=== PATIENT | female | born 1975 | race Caucasian/White ===

== ENCOUNTER 2024-02-02 04:22 | Emergency (ER) | payer MEDICAID ==
[~2024-02-02] VITALS: Ht 154.9 cm; Wt 77.0 kg
[~2024-02-02 04:22] MED LIST: ASPI-1160 PO; EPIN0.3P3 IM; GABA-529 PO; LIP40 PO; LOSA25TA26 PO
[2024-02-02 04:33] VITALS: TEMP 98.2; O2SAT 98
[2024-02-02] MEDS: FAMOTIDINE 20MG/2ML VIAL IV ONE (05:15)
[2024-02-02] MEDS: FAMOTIDINE 20MG/2ML VIAL IV NR (05:15)
[2024-02-02] MEDS: METHYLPREDNISOLONE SOD SUCC 125MG/2ML (ACT-O-VIAL) IV ONE (05:59)
[2024-02-02] MEDS: DIPHENHYDRAMINE 50MG/ML VIAL IV ONE (06:00)
[2024-02-02 07:45] VITALS: BP 112/78; PULSE 90; RESP 16
[2024-02-02] MEDS ORDERED: P20 MT (08:02)
[2024-02-02] MEDS ORDERED: DIPH25CA83 MT (08:03)
[2024-02-02] MEDS ORDERED: FAMO-135 MT (08:03)
== END 2024-02-02 08:37 | disposition home or self-care (01) ==
LOC: ER 04:22
DX: T78.40XA Allergy, unspecified, initial encounter (principal); E11.9 Type 2 diabetes mellitus without complications; E78.00 Pure hypercholesterolemia, unspecified; I10 Essential (primary) hypertension; X58.XXXA Exposure to other specified factors, initial encounter
CPT/HCPCS: 96374; 96375; 99284; J1200; J3490; J2930; Z7610

== ENCOUNTER 2024-02-03 05:22 | Emergency (ER) | payer MEDICAID ==
[~2024-02-03] VITALS: Ht 154.9 cm; Wt 77.0 kg
[~2024-02-03 05:22] MED LIST changes: +DIPH25CA83 MT; +FAMO-135 MT; +P20 MT
[2024-02-03 05:27] VITALS: O2SAT 93
[2024-02-03] MEDS: FAMOTIDINE 20MG/2ML VIAL IV ONE (06:15)
[2024-02-03] MEDS: DEXAMETHASONE 10 MG/ML VIAL IV ONE (06:15)
[2024-02-03] MEDS: EPINEPHRINE 1:1000 1 MG/ML AMP IM ONE (06:16)
[2024-02-03] MEDS: DIPHENHYDRAMINE 50MG/ML VIAL IV ONE (06:16)
[2024-02-03] MEDS: LORAZEPAM 2MG/ML INJ IV ONE (06:51)
[2024-02-03 10:00] VITALS: BP 119/75; RESP 12; TEMP 98.9
[2024-02-03 10:57] VITALS: PULSE 98
[2024-02-04] MEDS ORDERED: RIFA300C34 MT (18:27)
== END 2024-02-03 11:25 | disposition home or self-care (01) ==
LOC: ER 05:35
DX: T78.2XXA Anaphylactic shock, unspecified, initial encounter (principal); E11.9 Type 2 diabetes mellitus without complications; I10 Essential (primary) hypertension; I25.2 Old myocardial infarction; Z79.899 Other long term (current) drug therapy; X58.XXXA Exposure to other specified factors, initial encounter
CPT/HCPCS: 93005; 96372; 96374; 96375; 99291; J1100; J1200; J3490 ×2; J2060; Z7610 ×4

== ENCOUNTER 2024-02-04 00:13 | Inpatient (IN) | payer MEDICAID ==
[~2024-02-04] VITALS: Ht 154.9 cm; Wt 72.6 kg
[2024-02-04] VITALS (48 sets, daily range): BP systolic 87–130; BP diastolic 49–91; PULSE 90–116; RESP 12–22; TEMP 97.3–98.1
[2024-02-04] MEDS ORDERED: DIPHENHYDRAMINE 50MG CAPSULE PO ONE (01:00)
[2024-02-04] MEDS: DIPHENHYDRAMINE 25MG CAPSULE PO NR (01:13)
[2024-02-04] MEDS: FAMOTIDINE 20MG TABLET PO SCH (01:13)
[2024-02-04] MEDS: PREDNISONE 20MG TABLET PO ONE (01:13)
[2024-02-04] MEDS: SODIUM CHLORIDE 0.9% 1,000 ML IV ONE (02:00)
[2024-02-04] MEDS: EPINEPHRINE 1:1000 1 MG/ML AMP IM ONE (02:19)
[2024-02-04 02:31] LABS: CHLORIDE 102 mEq/L (98-107); POTASSIUM 3.8 mEq/L (3.5-5.1); SODIUM 135 mEq/L (136-145)
[2024-02-04 02:32] LABS: CALCIUM 9.6 mg/dL (8.7-10.4); CARBON DIOXIDE 25 mEq/L (21-32)
[2024-02-04 02:33] LABS: BASOPHILS % 0.1 % (0.0-2.0); DIFFERENTIAL COMMENT 0; EOSINOPHILS % 0.1 % (0.0-5.0); HEMATOCRIT. 43.2 % (36.0-48.0); HEMOGLOBIN. 14.2 g/dL (12.0-16.0); LYMPHOCYTES % 15.4 % (20.0-50.0); MEAN CORPUSCULAR HGB CONC 32.9 g/dL (31.0-37.0); MEAN PLATELET VOLUME 8.3 fl (7.4-10.4); MONOCYTES % 2.2 % (2.0-8.0); NEUTROPHILS % 82.2 % (40.0-76.0); PLATELET 351 x1000/uL (130-400); RED BLOOD CELL COUNT 5.46 mill/uL (4.2-5.4); RED CELL DISTRIBUTION WIDTH 15.3 % (11.6-14.6); WHITE BLOOD COUNT 12.1 x1000/uL (4.5-11.0)
[2024-02-04 02:37] LABS: CREATININE 0.6 mg/dL (0.6-1.0); GLUCOSE 180 mg/dL (70-105); UREA NITROGEN BLOOD 11 mg/dL (9-23)
[2024-02-04 02:39] LABS: ALANINE AMINOTRANSFERASE 25 IU/L (10-49); ALBUMIN 4.1 g/dL (3.2-4.8); ASPARTATE AMINOTRANSFERASE 28 IU/L (<34); BILIRUBIN TOTAL 0.3 mg/dL (0.1-1.0); PROTEIN TOTAL 7.3 g/dL (6.0-8.3)
[2024-02-04 02:46] LABS: INR 0.9; PROTHROMBIN TIME 10.5 sec (9.6-11.0)
[2024-02-04] MEDS ORDERED: METOCLOPRAMIDE HCL 10MG/2ML VIAL IV ONE (03:00)
[2024-02-04] MEDS ORDERED: KETOROLAC 15MG/ML VIAL IV ONE (03:00)
[2024-02-04] MEDS: METOCLOPRAMIDE HCL 10MG/2ML VIAL IV NR (05:09)
[2024-02-04] MEDS: KETOROLAC 15MG/ML VIAL IV NR (05:09)
[2024-02-04] MEDS ORDERED: METHYLPREDNISOLONE SOD SUCC 40MG VIAL IV SCH (05:45)
[2024-02-04] MEDS: METHYLPREDNISOLONE SOD SUCC 125MG/2ML (ACT-O-VIAL) IV SCH (05:59)
[2024-02-04] MEDS ORDERED: EPINEPHRINE 10 MG in SODIUM CHLORIDE 0.9% 250 ML IV NR (06:00)
[2024-02-04] MEDS: EPINEPHRINE 10 MG in SODIUM CHLORIDE 0.9% 250 ML IV NR (06:49)
[2024-02-04] MEDS ORDERED: ACETAMINOPHEN 325MG TABLET PO PRN (16:15)
[2024-02-04] MEDS ORDERED: IPRATROPIUM/ALBUTEROL 0.5-3(2.5)MG/3ML NEB HHN PRN (16:15)
[2024-02-04] MEDS ORDERED: CLONIDINE 0.1MG TABLET PO PRN (16:15)
[2024-02-04] MEDS ORDERED: ONDANSETRON HCL 4MG/2ML INJ IV PRN (16:15)
[2024-02-04] MEDS: DIPHENHYDRAMINE 50MG/ML VIAL IV SCH (16:34)
[2024-02-04] MEDS: METHYLPREDNISOLONE SOD SUCC 40MG/ML (ACT-O-VIAL) IV SCH (17:35)
[2024-02-04] MEDS: MONTELUKAST SODIUM 10MG TABLET PO SCH (17:35)
[2024-02-04] MEDS ORDERED: RIFA300C34 MT (18:27)
[2024-02-04] MEDS: ENOXAPARIN 40MG/0.4ML SYR SUBCUT SCH (20:17)
[2024-02-04] MEDS: FAMOTIDINE 20MG/2ML VIAL IV SCH (20:17)
[2024-02-05] VITALS (28 sets, daily range): BP systolic 101–129; BP diastolic 60–77; PULSE 75–104; RESP 11–27; TEMP 97.8–98.3; O2SAT 97
[2024-02-05 05:42] LABS: BASOPHILS % 0.1 % (0.0-2.0); HEMATOCRIT. 38.1 % (36.0-48.0); HEMOGLOBIN. 12.7 g/dL (12.0-16.0); LYMPHOCYTES % 14.6 % (20.0-50.0); MEAN CORPUSCULAR HEMOGLOBIN 26.7 pg (28.0-32.0); MEAN CORPUSCULAR HGB CONC 33.3 g/dL (31.0-37.0); MEAN CORPUSCULAR VOLUME 80.3 fL (81.0-99.0); MEAN PLATELET VOLUME 7.7 fl (7.4-10.4); MONOCYTES % 2.1 % (2.0-8.0); NEUTROPHILS % 83.2 % (40.0-76.0); PLATELET 328 x1000/uL (130-400); RED BLOOD CELL COUNT 4.75 mill/uL (4.2-5.4); RED CELL DISTRIBUTION WIDTH 14.9 % (11.6-14.6); WHITE BLOOD COUNT 9.2 x1000/uL (4.5-11.0)
[2024-02-05 05:53] LABS: CHLORIDE 107 mEq/L (98-107); SODIUM 138 mEq/L (136-145)
[2024-02-05 05:54] LABS: CARBON DIOXIDE 26 mEq/L (21-32)
[2024-02-05 05:55] LABS: CALCIUM 9.5 mg/dL (8.7-10.4)
[2024-02-05 05:59] LABS: CREATININE 0.6 mg/dL (0.6-1.0)
[2024-02-05 06:00] LABS: GLUCOSE 109 mg/dL (70-105); UREA NITROGEN BLOOD 10 mg/dL (9-23)
[2024-02-05 06:01] LABS: ALANINE AMINOTRANSFERASE 18 IU/L (10-49); ALBUMIN 3.7 g/dL (3.2-4.8)
[2024-02-05 06:02] LABS: ASPARTATE AMINOTRANSFERASE 18 IU/L (<34); BILIRUBIN TOTAL 0.3 mg/dL (0.1-1.0); PROTEIN TOTAL 6.8 g/dL (6.0-8.3)
[2024-02-05] MEDS ORDERED: P20 MT (10:27)
[2024-02-06] MEDS ORDERED: PREDNISONE 20MG TABLET PO SCH (09:00)
== END 2024-02-05 15:15 | disposition home or self-care (01) | DRG 811 ==
LOC: ER 00:13 → MICUSO 03:24 → EDBEDREQ 03:28 → EDBEDREQTM 03:28
PROVIDERS: ADMIT Internal Medicine; ATTEND Internal Medicine
DX: T78.2XXA Anaphylactic shock, unspecified, initial encounter (principal); J96.01 Acute respiratory failure with hypoxia; E78.5 Hyperlipidemia, unspecified; D72.829 Elevated white blood cell count, unspecified; E03.9 Hypothyroidism, unspecified; E11.9 Type 2 diabetes mellitus without complications; G35 Multiple sclerosis; I10 Essential (primary) hypertension; M48.02 Spinal stenosis, cervical region; M19.90 Unspecified osteoarthritis, unspecified site; Z91.013 Allergy to seafood; X58.XXXA Exposure to other specified factors, initial encounter; Z79.84 Long term (current) use of oral hypoglycemic drugs; Z88.8 Allergy status to other drugs, medicaments and biological substances
CPT/HCPCS: 36415; 71045; 80053; 85025; 93970; 99285; J1200; J1650; J1885; J2765; J2920; J2930; J3490; J7030; J7050; J7512; Q0163

== ENCOUNTER 2024-06-19 15:28 | Emergency (ER) | payer MEDICAID ==
[~2024-06-19] VITALS: Ht 165.1 cm; Wt 81.0 kg
[~2024-06-19 15:28] MED LIST changes: +RIFA300C66 MT
[2024-06-19 15:50] VITALS: O2SAT 97
[2024-06-19 16:14] LABS: EOSINOPHILS % 3.8 % (0.0-5.0); HEMATOCRIT. 40.4 % (36.0-48.0); HEMOGLOBIN. 13.7 g/dL (12.0-16.0); LYMPHOCYTES % 37.4 % (20.0-50.0); MEAN CORPUSCULAR HEMOGLOBIN 27.4 pg (28.0-32.0); MEAN CORPUSCULAR HGB CONC 33.9 g/dL (31.0-37.0); MEAN CORPUSCULAR VOLUME 80.7 fL (81.0-99.0); MEAN PLATELET VOLUME 7.4 fl (7.4-10.4); MONOCYTES % 5.7 % (2.0-8.0); NEUTROPHILS % 52.1 % (40.0-76.0); PLATELET 316 x1000/uL (130-400); RED CELL DISTRIBUTION WIDTH 15.4 % (11.6-14.6); WHITE BLOOD COUNT 6.3 x1000/uL (4.5-11.0)
[2024-06-19 16:22] LABS: CHLORIDE 106 mEq/L (98-107); POTASSIUM 3.8 mEq/L (3.5-5.1); SODIUM 138 mEq/L (136-145)
[2024-06-19 16:23] LABS: CARBON DIOXIDE 28 mEq/L (21-32)
[2024-06-19 16:28] LABS: CREATININE 0.9 mg/dL (0.6-1.0); GLUCOSE 115 mg/dL (70-105); UREA NITROGEN BLOOD 10 mg/dL (9-23)
[2024-06-19 16:42] LABS: TROPONIN I HIGH SENSITIVITY < 4 ng/L (3.0-34)
[2024-06-19] MEDS: ACETAMINOPHEN 325MG TABLET PO ONE (19:00)
[2024-06-19] MEDS ORDERED: FAMOTIDINE 20MG TABLET PO SCH (19:00)
[2024-06-19] MEDS ORDERED: TOPUD MT (21:49)
[2024-06-19] MEDS ORDERED: FAMO-135 MT (21:49)
[2024-06-19] MEDS ORDERED: DIPH-1091 MT (21:49)
[2024-06-19 22:13] LABS: TROPONIN I HIGH SENSITIVITY < 4 ng/L (3.0-34)
[2024-06-19 23:48] VITALS: TEMP 98.1
[2024-06-19] MEDS: FAMOTIDINE 20MG TABLET PO NR (23:48)
[2024-06-19] MEDS: ACETAMINOPHEN 325MG TABLET PO NR (23:48)
[2024-06-19 23:49] VITALS: BP 134/71; PULSE 78; RESP 16; O2SAT 97
== END 2024-06-19 23:51 | disposition home or self-care (01) ==
LOC: ER 15:28
DX: R07.89 Other chest pain (principal); E11.9 Type 2 diabetes mellitus without complications; I10 Essential (primary) hypertension; I25.2 Old myocardial infarction; Z79.899 Other long term (current) drug therapy
CPT/HCPCS: 36415; 71045; 80048; 84484; 85025; 93005; 99285